=== PATIENT | female | born 1990 | race African-American/Black ===

== ENCOUNTER 2017-02-05 11:21 | Emergency (ER) | payer OTHER ==
[~2017-02-05] VITALS: Ht 160 cm; Wt 52.0 kg
[2017-02-05] MEDS ORDERED: IBUPROFEN 600MG TABLET PO ONE (11:30)
[2017-02-05 11:50] VITALS: BP 102/75
[2017-02-05] MEDS ORDERED: KETOROLAC 60MG/2ML VIAL IM ONE (12:00)
== END 2017-02-05 13:18 | disposition left against medical advice (07) ==
LOC: ER 11:33
DX: S70.12XA Contusion of left thigh, initial encounter (principal); V49.50XA Passenger injured in collision with unspecified motor vehicles in traffic accident, initial encounter; Y93.89 Activity, other specified; Y92.410 Unspecified street and highway as the place of occurrence of the external cause
CPT/HCPCS: 81025; 96372; 99284; J1885